=== PATIENT | female | born 1955 | race Caucasian/White ===

== ENCOUNTER 2018-08-06 20:41 | Emergency (ER) | payer BC ==
[~2018-08-06] VITALS: Ht 152.4 cm; Wt 65.8 kg
[2018-08-06 21:32] LABS: BASOPHIL % 0.7 % (0-2); PLATELET COUNT 176 x10^3mcL (130-400); RED CELL DISTRIBUTION WIDTH 14.5 % (11.5-14.5)
[2018-08-06 21:38] LABS: CALCIUM 8.8 mg/dL (8.5-10.1); CARBON DIOXIDE 29.1 mmol/L (21-32); CHLORIDE SERUM 105 mmol/L (98-107); CREATININE SERUM 0.7 mg/dL (0.6-1.0); GFR1 > 60 mL/min; GLUCOSE SERUM 100 mg/dL (74-106); POTASSIUM SERUM 3.9 mmol/L (3.5-5.1); SODIUM SERUM 139 mmol/L (136-145)
[2018-08-06 21:42] LABS: ALBUMIN 3.8 g/dL (3.4-5.0); ALKALINE PHOSPHATASE 74 U/L (46-116); ALT/SGPT 30 U/L (14-59); AST/SGOT 17 U/L (15-37); BILIRUBIN TOTAL 0.41 mg/dL (0.20-1.00); TOTAL PROTEIN, SERUM 7.4 g/dL (6.4-8.2)
[2018-08-06 22:31] VITALS: BP 105/64
== END 2018-08-06 22:31 | disposition home or self-care (01) ==
LOC: ED 20:41
PROVIDERS: Emergency Medicine
DX: R07.89 Other chest pain (principal); E11.9 Type 2 diabetes mellitus without complications; E78.00 Pure hypercholesterolemia, unspecified
CPT/HCPCS: 36415; 85378; Q0092

== ENCOUNTER 2019-05-21 00:24 | Inpatient (IN) | payer MEDICAID ==
[~2019-05-21] VITALS: Ht 152.4 cm; Wt 64.5 kg
[2019-05-21 00:27] VITALS: Ht 152.4 cm; Wt 64.5 kg
[2019-05-21 02:28] LABS: BASOPHIL % 0.5 % (0-2); PLATELET COUNT 283 x10^3mcL (130-400); RED CELL DISTRIBUTION WIDTH 14.6 % (11.5-14.5)
[2019-05-21 03:35] LABS: ALBUMIN 3.5 g/dL (3.4-5.0); BILIRUBIN TOTAL 0.4 mg/dL (0.20-1.00); CALCIUM 8.6 mg/dL (8.5-10.1); CARBON DIOXIDE 31.6 mmol/L (21-32); CHLORIDE SERUM 105 mmol/L (98-107); CREATININE SERUM 0.7 mg/dL (0.6-1.0); GFR1 > 60 mL/min; GLUCOSE SERUM 129 mg/dL (74-106); POTASSIUM SERUM 4.1 mmol/L (3.5-5.1); SODIUM SERUM 141 mmol/L (136-145); TOTAL PROTEIN, SERUM 7.2 g/dL (6.4-8.2)
[2019-05-21 03:36] LABS: ALKALINE PHOSPHATASE 73 U/L (46-116); ALT/SGPT 32 U/L (14-59); AST/SGOT 18 U/L (15-37)
[2019-05-21] MEDS ORDERED: JARDIANCE10 MG (03:55)
[2019-05-21] MEDS ORDERED: COZAAR25 M1 PO (03:55)
[2019-05-21] MEDS ORDERED: METFORMIN500 M1 PO (03:55)
[2019-05-21] MEDS ORDERED: LIPITOR20 MG PO (03:56)
[2019-05-21 04:40] LABS: CHOLESTEROL/HDL RATIO 3.2
[2019-05-21 05:17] VITALS: BP 124/67
[2019-05-21 07:22] LABS: BASOPHIL % 0.6 % (0-2); PLATELET COUNT 203 x10^3mcL (130-400)
[2019-05-21 08:05] LABS: RED CELL DISTRIBUTION WIDTH 14.8 % (11.5-14.5)
[2019-05-21 08:18] LABS: CALCIUM 8.5 mg/dL (8.5-10.1); CARBON DIOXIDE 29.1 mmol/L (21-32); CHLORIDE SERUM 105 mmol/L (98-107); CREATININE SERUM 0.7 mg/dL (0.6-1.0); GFR1 > 60 mL/min; GLUCOSE SERUM 122 mg/dL (74-106); MAGNESIUM 2.2 mg/dL (1.8-2.4); PHOSPHOROUS 4.4 mg/dL (2.5-4.9); POTASSIUM SERUM 3.4 mmol/L (3.5-5.1); SODIUM SERUM 143 mmol/L (136-145)
[2019-05-21 08:30] VITALS: BP 108/56
[2019-05-21 13:11] VITALS: BP 128/68
[2019-05-21 17:30] VITALS: BP 101/62
[2019-05-21 21:01] VITALS: BP 127/71
[2019-05-21 22:48] LABS: microscopic required? NO
[2019-05-21 23:16] LABS: urine erythrocyte NEGATIVE (NEGATIVE)
[2019-05-21 23:45] LABS: AMPHETAMINE QUAL UR NEGATIVE (See below)
[2019-05-22 05:26] VITALS: BP 111/61
[2019-05-22 06:42] LABS: BASOPHIL % 0.6 % (0-2); PLATELET COUNT 199 x10^3mcL (130-400); RED CELL DISTRIBUTION WIDTH 14.2 % (11.5-14.5)
[2019-05-22 07:37] LABS: CARBON DIOXIDE 28.2 mmol/L (21-32); CHLORIDE SERUM 107 mmol/L (98-107); CREATININE SERUM 0.7 mg/dL (0.6-1.0); GFR1 > 60 mL/min; GLUCOSE SERUM 130 mg/dL (74-106); PHOSPHOROUS 3.5 mg/dL (2.5-4.9); POTASSIUM SERUM 4.4 mmol/L (3.5-5.1); SODIUM SERUM 142 mmol/L (136-145)
[2019-05-22 07:46] LABS: MAGNESIUM 2.4 mg/dL (1.8-2.4)
[2019-05-22 07:51] LABS: CALCIUM 8.3 mg/dL (8.5-10.1)
[2019-05-22 08:44] VITALS: BP 119/60
[2019-05-22 12:58] VITALS: BP 118/65
[2019-05-22] MEDS ORDERED: TYL325 PO (14:48)
[2019-05-22 15:05] VITALS: BP 118/65
== END 2019-05-22 15:51 | disposition home or self-care (01) | DRG 203 ==
LOC: ED 00:24 → DU 04:03
PROVIDERS: ADMIT Internal Medicine
DX: M94.0 Chondrocostal junction syndrome [Tietze] (principal); E11.65 Type 2 diabetes mellitus with hyperglycemia; I10 Essential (primary) hypertension; E78.5 Hyperlipidemia, unspecified; Z68.28 Body mass index [BMI] 28.0-28.9, adult; Z79.84 Long term (current) use of oral hypoglycemic drugs
CPT/HCPCS: 82962; 83880; G0378; J1815; J1885; J7030